=== PATIENT | male | born 1995 | race Caucasian/White ===

== ENCOUNTER 2019-04-12 23:06 | Emergency (ER) | payer SELFPAY ==
[~2019-04-12] VITALS: Ht 175.3 cm; Wt 92.1 kg
[2019-04-12 23:10] VITALS: BP 114/78; Ht 175.3 cm; Wt 92.1 kg
== END 2019-04-13 00:36 | disposition home or self-care (01) ==
LOC: ED 23:06
DX: S61.215A Laceration without foreign body of left ring finger without damage to nail, initial encounter (principal); L08.9 Local infection of the skin and subcutaneous tissue, unspecified; W26.8XXA Contact with other sharp object(s), not elsewhere classified, initial encounter; Y93.89 Activity, other specified; Y92.89 Other specified places as the place of occurrence of the external cause; Y99.8 Other external cause status